=== PATIENT | female | born 1990 | race Hispanic/Latino ===

== ENCOUNTER 2017-05-24 16:36 | Inpatient (IN) | payer MEDICAID, OTHER ==
--- NOTE | 2017-05-24 16:47 | C.PDOC ---
History Of Present Illness 26 year old female transferred from [facility] (formerly [facility]) for admission for depression , suicidal ideation, and substance abuse. Pt has been accepted by Dr. Cortes. Otherwise, pt denies any physical complaints at this time. Time Seen by Provider: 05/24/17 16:45 Chief Complaint (Nursing): Psychiatric Evaluation History Per: Patient History/Exam Limitations: no limitations Past Medical History Reviewed: Historical Data, Nursing Documentation, Vital Signs Vital Signs: Last Vital Signs Temp 98.3 F 05/24/17 16:42 Pulse 77 05/24/17 16:42 Resp 18 05/24/17 16:42 BP 110/66 05/24/17 16:42 Pulse Ox 98 05/24/17 16:47 - Medical History PMH: Anxiety, Bipolar Disorder, Depression Denies: Diabetes, Hepatitis, HIV, HTN, Chronic Kidney Disease, Seizures, Sexually Transmitted Disease - [employer] Procedures GROUP PSYCHOTHERAPY (04/03/17) INDIVIDUAL PSYCHOTHERAPY, BEHAVIORAL (04/03/17) INTRODUCE OF SERUM/TOX/VACCINE INTO MOUTH/PHAR, VIA OPENING (04/03/17) Family History: States: Unknown Family Hx - Social History Hx Alcohol Use: Yes (started at 15) Hx Substance Use: Yes (started at 15) Review Of Systems Except As Marked, All Systems Reviewed And Found Negative. Constitutional: Negative for: Fever, Chills Cardiovascular: Negative for: Chest Pain, Palpitations Respiratory: Negative for: Cough, Shortness of Breath Psych: Positive for: Depression, Suicidal ideation Physical Exam - Physical Exam Appears: Non-toxic, No Acute Distress Skin: Normal Color, Warm, Dry Head: Atraumatic, Normacephalic Eye(s): bilateral: Normal Inspection Oral Mucosa: Moist Neck: Supple Cardiovascular: Rhythm Regular, No Murmur Respiratory: Normal Breath Sounds, No Rales, No Rhonchi, No Wheezing Extremity: Normal ROM, No Deformity Neurological/Psych: Oriented x3, Normal Speech ED Course And Treatment O2 Sat by Pulse Oximetry: 98 (RA) Pulse Ox Interpretation: Normal Medical Decision Making Medical Decision Making: Pt will be admitted under Dr. Cortes's service for depression. Disposition Discussed With : Kenneth Cortes Counseled Patient/Family Regarding: Studies Performed, Diagnosis - Disposition Disposition: HOSPITALIZED Disposition Time: 16:47 Condition: FAIR Forms: [employer] (O[place]i) - Clinical Impression Clinical Impression: Moderate major depression, single episode - Scribe Statement The provider has reviewed the documentation as recorded by the Angelibe Yuliya Parmar All medical record entries made by the Angelibshukri were at my direction and personally dictated by me. I have reviewed the chart and agree that the record accurately reflects my personal performance of the history, physical exam, medical decision making, and the department course for this patient. I have also personally directed, reviewed, and agree with the discharge instructions and disposition.
--- NOTE | 2017-05-24 18:03 | PCM.BM ---
Treatment Plan Problems - Problems identified on initial assessmt Suicidal ideation Date Initiated: 05/24/17 Time Initiated: 17:45 Assessment reference: NA Status: Active Depression Date Initiated: 05/24/17 Time Initiated: 17:45 Assessment reference: NA Status: Active Treatment assets and liabiliti Patient Assests: adapts well, cooperative, resourceful, self-reliant, ADL independent, physically healthy, negotiates basic needs, cognitively intact Patient Liabilities: poor support system, substance abuse - Milieu Protocol Maintain good personal hygiene: daily Encourage regular showers, daily Remind patient to perform daily oral care, daily Assist patient to perform ADL's Maintain personal safety: every shift Educate patient to report safety concerns to staff, every shift Monitor environment for contraband/sharps Medication safety: Monitor for expected outcome, potential side effects: every shift, Assess barriers to learning: every shift, Assess readiness for medication education: every shift
--- NOTE | 2017-05-25 10:35 | PCM.BM ---
<Geraldine Vasquezn - Last Filed: 05/25/17 10:34> Treatment Plan Problems - Problems identified on initial assessmt Suicidal ideation Date Initiated: 05/24/17 Time Initiated: 17:45 Assessment reference: NA Status: Active Depression Date Initiated: 05/24/17 Time Initiated: 17:45 Assessment reference: NA Status: Active Treatment assets and liabiliti Patient Assests: adapts well, cooperative, resourceful, self-reliant, ADL independent, physically healthy, negotiates basic needs, cognitively intact Patient Liabilities: poor support system, substance abuse - Milieu Protocol Maintain good personal hygiene: daily Encourage regular showers, daily Remind patient to perform daily oral care, daily Assist patient to perform ADL's Maintain personal safety: every shift Educate patient to report safety concerns to staff, every shift Monitor environment for contraband/sharps Medication safety: Monitor for expected outcome, potential side effects: every shift, Assess barriers to learning: every shift, Assess readiness for medication education: every shift <Renee Velasquez - Last Filed: 05/26/17 22:46> - Diagnosis (1) Opioid use disorder, severe, dependence Status: Acute Interventions: 05/26/17 22:47 * Assess 7x/week regarding severity of withdrawal * Educate regarding risks, benefits, side effects and alternatives of medications * Use Motivational Interviewing for abstinence * Use CBT for relapse prevention * Medication management for withdrawal symptoms * Encourage medication assisted treatment * (2) Depression, major, severe recurrence Status: Acute Interventions: 05/26/17 22:47 * Assess/adjust medications daily and /or as needed * See patient on an individual basis 7x/week to assess symptoms of depression * Monitor for side effects & effectiveness of medications * <Kristy Cardoso - Last Filed: 05/28/17 14:57> Family Contact Family involvement: Famliy/SO not involved - Goals for Treatment Patient goals for treatment: "I want to go to rehab." Discharge/Continuing Care - Education Needs Education Needs: Patient Medication, Patient Coping Skills - Discharge Discharge Criteria: Tolerates medication w/o severe side effects, Free of Suicidal thoughts, Reduction of target symptoms Discharge to:: Substance Abuse Rehab - Treatment Team Participation Discussed with Family/SO: No Was Patient/Family/SO present at Treatment Team Meeting: Yes
[2017-05-25] MEDS ORDERED: Aluminum Hydroxide/Magnesium Hydroxide Susp (30 mL) PO PRN (14:22)
[2017-05-25] MEDS: Hydrocortisone 2.5% Rectal Cream(30 gm) PR SCH (17:59)
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
[2017-05-25] MEDS ORDERED: Benzocaine/Menthol 20%-0.5% Topical Spray (60 ml) EXT PRN (23:22)
[2017-05-26] MEDS ORDERED: Pneumococcal 23-Valent Vaccine IM ONE (10:00)
[2017-05-26] MEDS ORDERED: Influenza Vaccine 60 mcg/0.5 mL SYR (4YR UP) IM ONE (10:00)
[2017-05-26] MEDS: Hydrocortisone 2.5% Rectal Cream(30 gm) PR SCH ×2 (10:06→17:12)
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
[2017-05-26] MEDS: Albuterol HFA 90 mcg/actuation (8 g) INH PRN (11:35)
[2017-05-26] MEDS: Acyclovir 5% Oint (15 gm) EXT SCH ×3 (15:03→21:16)
--- NOTE | 2017-05-26 15:10 | PCM.PYCHPN ---
Psychiatric Progress Note - Psychiatric Progress Note Patient seen today, length of contact: 15 min Patient Chief Complaint: "I don't want to move, my rash hurts." Problems Identified/Issues Discussed: The pt is seen, chart reviewed, case discussed with staff. The pt is compliant with medications and reports no side-effects. Symptoms are improving but needs more time to stabilize. After care discussed, support and psychoeducation given. She said she is interested in rehab and our SW will help her. Medication Change: Yes (detox changes daily) Medical Record Reviewed: Yes Mental Status Examination - Cognitive Function Orientation: Person, Place, Situation, Time Memory: Intact Attention: WNL Concentration: WNL Association: WNL Fund of Knowledge: WNL - Mood Mood: Anxious - Affect Affect: Constricted - Speech Speech: Appropriate - Formal Thought Process Formal Thought Process: No Impairment - Suicidal Ideation Suicidal Ideation: No - Homicidal Ideation Homicidal Ideation: No Goal/Treatment Plan - Goal/Treatment Plan Need for Continued Stay: Discharge may exacerbated symptoms, Severe functional impairment Progress Toward Problem(s) and Goals/Treatment Plan: Continue meds and detox Support and psychoeducation WI and CBT Attend groups and activities prn meds After care help by RIAN
[2017-05-26 17:12] VITALS: O2SAT 98
[2017-05-26] MEDS: Benzocaine/Menthol (Cepacol) Lozenge MT PRN (21:49)
[2017-05-27] MEDS: Acyclovir 5% Oint (15 gm) EXT SCH ×9 (00:07→20:51)
[2017-05-27] MEDS: Hydrocortisone 2.5% Rectal Cream(30 gm) PR SCH ×3 (09:46→17:35)
[2017-05-27] MEDS: Albuterol HFA 90 mcg/actuation (8 g) INH PRN (13:32)
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
[2017-05-27] MEDS: Benzocaine/Menthol (Cepacol) Lozenge MT PRN (15:58)
[2017-05-28] MEDS: Acyclovir 5% Oint (15 gm) EXT SCH ×5 (05:59→18:21)
[2017-05-28] MEDS: Hydrocortisone 2.5% Rectal Cream(30 gm) PR SCH ×2 (09:34→18:22)
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
[2017-05-28] MEDS: Benzocaine/Menthol (Cepacol) Lozenge MT PRN (12:39)
[2017-05-29] MEDS: Acyclovir 5% Oint (15 gm) EXT SCH ×4 (09:59→21:10)
[2017-05-29] MEDS: Hydrocortisone 2.5% Rectal Cream(30 gm) PR SCH ×2 (10:11→18:14)
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
[2017-05-29] MEDS: Benzocaine/Menthol (Cepacol) Lozenge MT PRN (19:41)
[2017-05-30] MEDS: Benzocaine/Menthol (Cepacol) Lozenge MT PRN ×2 (01:57→20:40)
[2017-05-30] MEDS: Acyclovir 5% Oint (15 gm) EXT SCH ×4 (08:23→21:17)
[2017-05-30] MEDS: Hydrocortisone 2.5% Rectal Cream(30 gm) PR SCH ×2 (09:33→17:10)
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
[2017-05-30] MEDS: guaiFENesin 600 mg ER Tab PO SCH (17:10)
[2017-05-31] MEDS: Hydrocortisone 2.5% Rectal Cream(30 gm) PR SCH ×2 (09:14→17:12)
[2017-05-31] MEDS: Acyclovir 5% Oint (15 gm) EXT SCH ×6 (09:15→22:30)
[2017-05-31] MEDS: guaiFENesin 600 mg ER Tab PO SCH ×2 (09:27→17:11)
--- NOTE | 2017-05-31 09:51 | PCM.PYCHPN ---
Psychiatric Progress Note - Psychiatric Progress Note Patient seen today, length of contact: 15 min Medication Change: Yes (detox changes daily) Medical Record Reviewed: Yes Mental Status Examination - Cognitive Function Orientation: Person, Place, Situation, Time Memory: Intact Attention: WNL Concentration: WNL Association: WNL Fund of Knowledge: WNL - Mood Mood: Depressed - Affect Affect: Constricted, Depressed - Speech Speech: Appropriate - Formal Thought Process Formal Thought Process: No Impairment - Suicidal Ideation Suicidal Ideation: No - Homicidal Ideation Homicidal Ideation: No Goal/Treatment Plan - Goal/Treatment Plan Need for Continued Stay: Discharge may exacerbated symptoms, Severe functional impairment Progress Toward Problem(s) and Goals/Treatment Plan: Major depressive disorder recurrent severe without psychotic features PTSD chronic Opioid use disorder severe Cocaine use disorder severe Cannabis use disorder severe Stimulant use disorder Continue meds and detox Support and psychoeducation [place] and CBT Attend groups and activities prn meds After care help by PIPER pt is now refusing to go to [facility].
[2017-05-31] MEDS: Benzocaine/Menthol (Cepacol) Lozenge MT PRN (19:58)
[2017-06-01 05:31] VITALS: TEMP 97.9
[2017-06-01] MEDS: Acyclovir 5% Oint (15 gm) EXT SCH ×4 (09:46→17:32)
[2017-06-01] MEDS: guaiFENesin 600 mg ER Tab PO SCH ×2 (09:48→17:33)
[2017-06-01] MEDS: Hydrocortisone 2.5% Rectal Cream(30 gm) PR SCH ×2 (09:48→17:33)
[2017-06-01] MEDS: Albuterol HFA 90 mcg/actuation (8 g) INH PRN (10:54)
--- NOTE | 2017-06-01 11:49 | PCM.PYCHPN ---
Psychiatric Progress Note - Psychiatric Progress Note Patient seen today, length of contact: 15 min Medication Change: Yes (detox changes daily) Medical Record Reviewed: Yes Mental Status Examination - Cognitive Function Orientation: Person, Place, Situation, Time Memory: Intact Attention: WNL Concentration: WNL Association: WNL Fund of Knowledge: WNL - Mood Mood: Depressed - Affect Affect: Constricted, Depressed - Speech Speech: Appropriate - Formal Thought Process Formal Thought Process: No Impairment - Suicidal Ideation Suicidal Ideation: No - Homicidal Ideation Homicidal Ideation: No Goal/Treatment Plan - Goal/Treatment Plan Need for Continued Stay: Discharge may exacerbated symptoms, Severe functional impairment Progress Toward Problem(s) and Goals/Treatment Plan: 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
[2017-06-01 16:14] VITALS: BP 95/59; PULSE 82; RESP 18
--- NOTE | 2017-06-01 22:56 | PCM.PYCHDC ---
Mental Status Examination - Mental Status Examination Orientation: Person, Place, Situation, Time Memory: Intact Mood: Neutral Affect: Constricted Speech: Loud Attention: WNL Concentration: WNL Association: WNL Fund of Knowledge: WNL Formal Thought Process: No Impairment Suicidal Ideation: No Current Homicidal Ideation?: No Discharge Summary - Discharge Note Consultations:: List each consultation separately and include: 1. Reason for request. 2. Findings. 3. Follow-up Summary of Hospital Course include:: 1. Description of specific treatment plan utilized for patients during their course of treatmen. 2. Summarize the time- course for resolution of acute symptoms and/or regressed behaviors. 3. Describe issues identified and worked on during hospitalization. 4. Describe medication utilized. 5. Describe medical problems identified and treated. 6. 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
== END 2017-06-01 18:15 | disposition home or self-care (01) | DRG 430 ==
LOC: C.ER 16:36 → C.5E 16:46
PROC: GZ3ZZZZ Medication Management (ICD-10-PCS; principal; 2017-05-24)
PROC: GZHZZZZ Group Psychotherapy (ICD-10-PCS; 2017-05-24)
PROC: GZ56ZZZ Individual Psychotherapy, Supportive (ICD-10-PCS; 2017-05-24)
PROC: HZ2ZZZZ Detoxification Services for Substance Abuse Treatment (ICD-10-PCS; 2017-05-24)
PROC: HZ56ZZZ Individual Psychotherapy for Substance Abuse Treatment, Psychoeducation (ICD-10-PCS; 2017-05-24)
PROC: HZ59ZZZ Individual Psychotherapy for Substance Abuse Treatment, Supportive (ICD-10-PCS; 2017-05-24)
PROC: HZ90ZZZ Pharmacotherapy for Substance Abuse Treatment, Nicotine Replacement (ICD-10-PCS; 2017-05-24)
DX: F33.2 Major depressive disorder, recurrent severe without psychotic features (principal); R45.851 Suicidal ideations; F11.20 Opioid dependence, uncomplicated; F14.20 Cocaine dependence, uncomplicated; F12.20 Cannabis dependence, uncomplicated; F15.10 Other stimulant abuse, uncomplicated; F43.12 Post-traumatic stress disorder, chronic; F17.210 Nicotine dependence, cigarettes, uncomplicated; B00.9 Herpesviral infection, unspecified; G47.00 Insomnia, unspecified; J45.909 Unspecified asthma, uncomplicated; K64.4 Residual hemorrhoidal skin tags; F31.9 Bipolar disorder, unspecified; Z91.410 Personal history of adult physical and sexual abuse; Z91.19 Patient's noncompliance with other medical treatment and regimen; Z23 Encounter for immunization